=== PATIENT | male | born 1960 ===

== ENCOUNTER 2018-03-23 05:32 | Day surgery (SDC) | payer OTHER ==
[2018-03-23] MEDS ORDERED: Famotidine IV* 10 MG/ML 2 ML (20 mg) IV ONE (06:00)
[2018-03-23] MEDS ORDERED: Buffered Lidocaine 0.9% SYRIN* 5 ML/SYR SYRINGE INTRADERM ONE (06:00)
[2018-03-23] MEDS ORDERED: Famotidine IV* 10 MG/ML 2 ML (20 mg) ONE (06:07)
[2018-03-23] MEDS ORDERED: ceFAZolin 2 GM PREMIX in ORs 2 GM/50 ML BAG IVPB ONE (06:07)
[2018-03-23] MEDS ORDERED: Buffered Lidocaine 0.9% SYRIN* 5 ML/SYR SYRINGE ONE (06:08)
[2018-03-23] MEDS ORDERED: Bupivacaine 0.25% SDV PF* 10 ML VIAL INJ ONE (07:05)
[2018-03-23] MEDS ORDERED: Lidocaine 1% INJ* 10 MG/ML 30 ML SDV ONE (07:05)
[2018-03-23] MEDS ORDERED: Propofol* 10 MG/ML 20 ML BTL ONE (07:08)
[2018-03-23] MEDS ORDERED: Ketorolac INJ* 30 MG/ML 1 ML VIAL ONE (07:08)
[2018-03-23] MEDS ORDERED: fentaNYL* 50 MCG/ML 2 ML VIAL (100 MCG VIAL) ONE ×3 (07:08→09:25)
[2018-03-23] MEDS ORDERED: Dexamethasone IV* 4 MG/ML 1 ML (4 MG) ONE (07:08)
[2018-03-23] MEDS ORDERED: Lidocaine 2% PF * 5 ML VIAL ONE (07:08)
[2018-03-23] MEDS ORDERED: Midazolam* 1 MG/ML 5 ML VIAL (5 MG) ONE (07:08)
[2018-03-23] MEDS ORDERED: Ondansetron INJ* 2 MG/ML VIAL ONE (07:08)
[2018-03-23] MEDS ORDERED: ceFAZolin 1 GM in Dextrose (*) 1 GM/50 ML BAG IVPB ONE (07:20)
[2018-03-23] MEDS ORDERED: EPHEDrine (Pressors)* 50 MG/ML VIAL ONE (07:41)
[2018-03-23] MEDS ORDERED: fentaNYL* 50 MCG/ML 2 ML VIAL (100 MCG VIAL) IV PRN (08:09)
[2018-03-23] MEDS ORDERED: Naloxone* 0.4 MG/ML 1 ML VIAL IV PRN (08:09)
[2018-03-23] MEDS ORDERED: oxyCODONE/Acetamin 5/325 MG* TAB PO PRN (08:09)
[2018-03-23] MEDS ORDERED: Ondansetron INJ* 2 MG/ML VIAL IV PRN (08:09)
[2018-03-23 10:40] VITALS: BP 118/64
--- NOTE | 2018-03-24 12:42 | OP ---
DATE OF OPERATION: 03/23/18 - [facility] DATE OF : 56 SURGEON: Nima Jc MD BULL RIVETER: VI Matta . An clerical assistant was needed for the entirety of the procedure to aid in positioning of the arm and retraction. ANESTHESIOLOGIST: Dr. Kohli. ANESTHESIA: General. PRE-OP DIAGNOSIS: Right hand middle and ring finger Dupuytren's disease. POST-OP DIAGNOSIS: Right hand middle and ring finger Dupuytren's disease. OPERATIVE PROCEDURE: Excision of Dupuytren's tissue right palm and middle finger and ring finger. INDICATIONS: Javier is 57. He has significant Dupuytren's disease. I had treated the other side and has done well. This side is a bit more extensive and has multiple cords involving multiple fingers. We had talked about risks and benefits, he had wanted to proceed with surgery. ESTIMATED BLOOD LOSS: 2 mL. COMPLICATIONS: None. FINDINGS: See above and below. DESCRIPTION OF PROCEDURE: Javier was seen in the preoperative holding area. The correct site, side, and procedure were identified. We came back to the operating room. The arm was prepped and draped in the usual fashion. A time- out was performed. The arm was exsanguinated with the Esmarch and the tourniquet inflated to 250 mmHg. The arm was placed in position with the use of Lead hand. I then made a Jen type incision in the palm in line with the ring finger ray. The cord then came back over the third web space on to the radial side of the middle finger. There was also some cord out on to the A2 jose of the ring finger. I went ahead and brought my incisions out on to the middle and ring fingers in Jen type fashion. The Dupuytren's cord was released proximally and then traced out distally until the entirety of the central cord involving the ring finger was completely excised preserving the A2 and A1 pulleys. I then dissected out my ulnar digital nerve to the middle finger and followed it out from the bifurcation of the common digital nerve out on to the finger. This was protected as I excised the Dupuytren's tissue outlined to the ulnar side of the middle finger. It terminated out over the middle phalanx on to the A4 jose. There was a little bit of a retrovascular cord, this was all excised. Once there was absolutely no Dupuytren's tissue that remained, we irrigated out the wound. The flaps were then contoured and lengthened and arranged including a Z-plasty such that skin closed without any tension on the skin. Tourniquet was deflated and the fingers both pinked up immediately. We had achieved full motion in the operating room. The hand was splinted in extension. He was taken to the recovery room in stable condition. [id number] #: [id number] ARIES
== END 2018-03-23 11:49 | disposition home or self-care (01) ==
LOC: OR 05:32
PROVIDERS: ATTEND Orthopaedic Surgery Hand Surgery
DX: M72.0 Palmar fascial fibromatosis [Dupuytren] (principal); E11.9 Type 2 diabetes mellitus without complications; Z79.84 Long term (current) use of oral hypoglycemic drugs; Z79.4 Long term (current) use of insulin; I10 Essential (primary) hypertension; R16.2 Hepatomegaly with splenomegaly, not elsewhere classified
CPT/HCPCS: 88304; J0690; J1100; J1885; J2250; J2405; J2704; J3010; J3490